=== PATIENT | female | born 1985 | race Caucasian/White ===

== ENCOUNTER 2022-05-25 18:40 | Emergency (ER) | payer OTHER ==
[~2022-05-25] VITALS: Ht 175.3 cm; Wt 78.0 kg
[2022-05-25 18:40] VITALS: BP 106/63
[~2022-05-25 18:40] MED LIST: CITA40TA7; GABA-283; KETO10TAB PO; REGL10TA6 PO
== END 2022-05-25 20:41 | disposition left against medical advice (07) ==
LOC: M ED 18:40
DX: Z53.21 Procedure and treatment not carried out due to patient leaving prior to being seen by health care provider (principal)